=== PATIENT | male | born 1940 | race Caucasian/White ===

== ENCOUNTER 2018-06-29 14:27 | Inpatient (IN) ==
[2018-06-29] MEDS ORDERED: Pantoprazole Inj 40 MG Vial IV.PUSH ONE (15:07)
[2018-06-29] MEDS ORDERED: Sod Chloride 0.9% Inj 1,000 ML IV.CONT SCH (15:15)
--- NOTE | 2018-06-29 15:33 | ED ---
HPI General Chief Complaint: Recheck/Abnormal Lab/Rx Stated Complaint: [facility] Time Seen by Provider: 06/29/18 14:50 Source: patient Mode of arrival: ambulatory Limitations: no limitations History of Present Illness HPI narrative: The patient is a 77-year-old male who presents to the emergency department for abnormal lab results. The patient states he recently had blood work performed at the [place] [facility] which revealed a hemoglobin of 7.4. The patient was referred to the emergency department for further evaluation. The patient notes a 4-5 month history of intermittent black stools, last black stool was this morning. He also complains of mild fatigue, malaise, and shortness of breath with exertion. The patient denies any history of GI bleed and states his last colonoscopy was approximately 3-4 years ago at the [facility] , normal per his report. The patient does take Plavix and aspirin on a daily basis. Symptoms are moderate. He denies any epigastric abdominal pain, hematemesis, hematuria, or history of peptic ulcer disease. Symptoms are moderate. The patient denies any previous history of blood transfusion. Related Data Home Medications Medication Instructions Recorded Confirmed clopidogrel [Plavix] 75 mg PO DAILY 06/25/18 06/29/18 gabapentin 300 mg PO BID 06/25/18 06/29/18 prednisone 20 mg PO DAILY 06/25/18 06/29/18 aspirin [Aspir-81] 81 mg PO DAILY 06/29/18 06/29/18 Previous Rx's Medication Instructions Recorded methocarbamol [Robaxin] 500 mg PO Q6H #10 tab 06/25/18 Allergies Allergy/AdvReac Type Severity Reaction Status Date / Time [id number] Reductase AdvReac Intermediate [place] Verified 06/29/18 15:44 Inhibitor EXTREMITIES Review of Systems ROS: all other systems reviewed are negative [facility] Medical History Medical History Tibia fracture (Acute) TIA (transient ischemic attack) (Acute) 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) Surgical History Surgical History Hx of tonsillectomy (Acute) H/O left knee surgery (Acute) Family History Family History Father Family history of cancer Social History Social History Substance History: No History of Abuse Second Hand Smoke Exposure: No Smoking Status: Former smoker Tobacco Type: Cigarettes How Often Do You Have a Drink Containing Alcohol: Monthly or less Recent Travel in [facility] within the Last 8 Weeks: No Recent Out of Country Travel within the Last 8 Weeks: No Immunization History Tetanus Immunization Year if Known: 2018 Exam Narrative Exam Narrative: GENERAL: Awake, alert, pleasant 77-year-old male who appears his stated age and is in no acute respiratory distress. SKIN: Focused skin assessment warm/dry. HEAD: Atraumatic. Normocephalic. EYES: Pupils equal and round. No scleral icterus. No injection or drainage. Mild pallor noted. ENT: No nasal bleeding or discharge. Mucous membranes pink and moist. NECK: Trachea midline. No JVD. CARDIOVASCULAR: Regular rate and rhythm. No murmur appreciated. Heart rate in the 90s. RESPIRATORY: No accessory muscle use. Clear to auscultation. Breath sounds equal bilaterally. GASTROINTESTINAL: Abdomen soft, non-tender, nondistended. No rebound tenderness. No guarding rigidity. Rectal: No gross blood. Grossly guaiac positive with black stool. MUSCULOSKELETAL: No obvious deformities. No clubbing. No cyanosis. No edema. NEUROLOGICAL: Awake and alert. No obvious cranial nerve deficits. Motor grossly within normal limits. Normal speech. PSYCHIATRIC: Appropriate mood and affect; insight and judgment normal. Course Initial Documented Vital Signs Temperature 97.9 F 06/29/18 14:41 Pulse Rate 92 H 06/29/18 14:41 Respiratory Rate 16 06/29/18 14:41 Blood Pressure 172/72 H 06/29/18 14:41 Pulse Oximetry 98 06/29/18 14:41 Last Documented Vital Signs Temperature 97.9 F 06/29/18 14:41 Pulse Rate 92 H 06/29/18 14:41 Respiratory Rate 16 06/29/18 14:41 Blood Pressure 172/72 H 06/29/18 14:41 Pulse Oximetry 96 06/29/18 15:07 Medical Decision Making [facility] Narrative Medical decision making narrative: IV was established, labs are drawn and sent, and the patient was placed on cardiac telemetry monitoring and continuous pulse oximetry monitoring. EKG was ordered and interpreted. Orthostatic vital signs were obtained. The patient was placed on IV fluids. Type and screen was sent to lab. Rectal exam was performed, grossly guaiac positive with black stool, no gross blood. Hemoglobin was 7.6, BUN and creatinine are unremarkable. Patient does have symptomatic anemia with GI bleed, previous hemoglobin was normal. Therefore, the patient will be admitted to the hospital for serial CBC and GI evaluation. He may benefit from colonoscopy and/or blood transfusion. The patient is comfortable with this plan of care and disposition. Medical Screen Exam Complete: Yes Emergency Medical Condition: Yes Differential Diagnosis Differential Diagnosis: Differential diagnosis includes upper GI bleed, gastritis, peptic ulcer disease, AV malformation, angiodysplasia, colon cancer, diverticulosis, internal hemorrhoids, symptomatic anemia. Lab Data Result diagrams: 06/29/18 15:15 06/29/18 15:15 Lab Results 06/29/18 06/29/18 06/29/18 Range/Units 15:15 15:15 15:15 WBC 8.7 (4.0-11.0) th/mm3 RBC 3.35 L (4.50-5.90) mil/mm3 Hgb 7.6 L (13.0-17.0) gm/dL Hct 23.7 L (39.0-51.0) % MCV 70.8 L (80.0-100.0) fL MCH 22.8 L (27.0-34.0) pg MCHC 32.1 (32.0-36.0) % RDW 18.9 H (11.6-17.2) % Plt Count 349 (150-450) th/mm3 MPV 7.7 (7.0-11.0) fL Neut % (Auto) 75.0 H (16.0-70.0) % Lymph % (Auto) 11.2 (9.0-44.0) % [place] % (Auto) 11.2 H (0.0-8.0) % Eos % (Auto) 1.6 (0.0-4.0) % Baso % (Auto) 1.0 (0.0-2.0) % Neut # (Auto) 6.5 (1.8-7.7) th/mm3 Lymph # (Auto) 1.0 (1.0-4.8) th/mm3 [place] # (Auto) 1.0 H (0.0-0.9) th/mm3 Eos # (Auto) 0.1 (0.0-0.4) th/mm3 Baso # (Auto) 0.1 (0.0-0.2) th/mm3 WBC Differential . Differential Comment Auto diff final PT 10.7 (9.8-11.6) sec INR 1.1 Ratio APTT 24.5 (24.3-30.1) sec Sodium 140 (136-145) meq/L Potassium 3.6 (3.5-5.1) meq/L Chloride 105 (98-107) meq/L Carbon Dioxide 21.5 (21.0-32.0) meq/L Anion Gap 14 (5-15) meq/L BUN 9 (7-18) mg/dL Creatinine 0.74 (0.60-1.30) mg/dL Estimated GFR Greater than 89 (>89) mL/min Random Glucose 74 (74-106) mg/dL Calcium 8.3 L (8.5-10.1) mg/dL Total Bilirubin 0.4 (0.2-1.0) mg/dL AST 25 (15-37) U/L ALT 26 (12-78) U/L Alkaline Phosphatase 69 (45-117) U/L Total Protein 7.4 (6.4-8.2) g/dL Albumin 3.5 (3.4-5.0) g/dL Blood Type Blood Type Recheck Antibody Screen 06/29/18 Range/Units 15:15 WBC (4.0-11.0) th/mm3 RBC (4.50-5.90) mil/mm3 Hgb (13.0-17.0) gm/dL Hct (39.0-51.0) % MCV (80.0-100.0) fL MCH (27.0-34.0) pg MCHC (32.0-36.0) % RDW (11.6-17.2) % Plt Count (150-450) th/mm3 MPV (7.0-11.0) fL Neut % (Auto) (16.0-70.0) % Lymph % (Auto) (9.0-44.0) % [place] % (Auto) (0.0-8.0) % Eos % (Auto) (0.0-4.0) % Baso % (Auto) (0.0-2.0) % Neut # (Auto) (1.8-7.7) th/mm3 Lymph # (Auto) (1.0-4.8) th/mm3 [place] # (Auto) (0.0-0.9) th/mm3 Eos # (Auto) (0.0-0.4) th/mm3 Baso # (Auto) (0.0-0.2) th/mm3 WBC Differential Differential Comment PT (9.8-11.6) sec INR Ratio APTT (24.3-30.1) sec Sodium (136-145) meq/L Potassium (3.5-5.1) meq/L Chloride (98-107) meq/L Carbon Dioxide (21.0-32.0) meq/L Anion Gap (5-15) meq/L BUN (7-18) mg/dL Creatinine (0.60-1.30) mg/dL Estimated GFR (>89) mL/min Random Glucose (74-106) mg/dL Calcium (8.5-10.1) mg/dL Total Bilirubin (0.2-1.0) mg/dL AST (15-37) U/L ALT (12-78) U/L Alkaline Phosphatase (45-117) U/L Total Protein (6.4-8.2) g/dL Albumin (3.4-5.0) g/dL Blood Type O Negative Blood Type Recheck Required Antibody Screen Negative Discharge Plan Discharge Disposition Patient Disposition: 30 Still Patient Discharge Condition Condition: Stable Discharge Details Diagnosis: Symptomatic anemia, Gastrointestinal bleed Physicians Team ED Provider: Carlos Steven Primary Care Provider: [facility] Other Providers: Romeo Robertson Rxs /Orders / Referrals /Forms Prescriptions: No Action prednisone 20 mg Tablet 20 mg PO DAILY RF: 0 clopidogrel [Plavix] 75 mg Tablet 75 mg PO DAILY RF: 0 gabapentin 300 mg Capsule 300 mg PO BID RF: 0 methocarbamol [Robaxin] 500 mg tablet 500 mg PO Q6H Qty: 10 RF: 0 aspirin [Aspir-81] 81 mg Tablet,Delayed Release (Dr/Ec) 81 mg PO DAILY RF: 0 Status ED Status: Pending Admission
[2018-06-29 16:00] LABS: Baso # (Auto) 0.1 th/mm3 (0.0-0.2); Eos # (Auto) 0.1 th/mm3 (0.0-0.4); Eos % (Auto) 1.6 % (0.0-4.0); Hematocrit 23.7 % (39.0-51.0); Hemoglobin 7.6 gm/dL (13.0-17.0); Lymph % (Auto) 11.2 % (9.0-44.0); Mean Corpuscular HGB Conc 32.1 % (32.0-36.0); Mean Corpuscular Hemoglobin 22.8 pg (27.0-34.0); Mean Corpuscular Volume 70.8 fL (80.0-100.0); Mean Platelet Volume 7.7 fL (7.0-11.0); Mono % (Auto) 11.2 % (0.0-8.0); Neut # (Auto) 6.5 th/mm3 (1.8-7.7); Platelet Count 349 th/mm3 (150-450); Red Blood Count 3.35 mil/mm3 (4.50-5.90); Red Cell Distribution Width 18.9 % (11.6-17.2); White Blood Count 8.7 th/mm3 (4.0-11.0)
[2018-06-29 16:05] LABS: Activated Partial Thrombo Time 24.5 sec (24.3-30.1); INR 1.1 Ratio; Prothrombin Time 10.7 sec (9.8-11.6)
[2018-06-29 16:18] LABS: Alanine Aminotransferase 26 U/L (12-78); Albumin 3.5 g/dL (3.4-5.0); Anion Gap 14 meq/L (5-15); Aspartate Aminotransferase 25 U/L (15-37); Blood Urea Nitrogen 9 mg/dL (7-18); Calcium 8.3 mg/dL (8.5-10.1); Carbon Dioxide 21.5 meq/L (21.0-32.0); Chloride 105 meq/L (98-107); Glomerular Filtration Rate Greater Than 89 mL/min (>89); Glucose,Random 74 mg/dL (74-106); Potassium 3.6 meq/L (3.5-5.1); Sodium 140 meq/L (136-145)
[2018-06-29 16:20] LABS: Alkaline Phosphatase 69 U/L (45-117); Total Protein 7.4 g/dL (6.4-8.2)
[2018-06-29] MEDS ORDERED: Sodium Chlor 0.9% Inj 250 ML IV.SIG SCH ×3 (17:00→20:00)
--- NOTE | 2018-06-29 17:04 | P.HPIM ---
History of Present Illness Primary Care Physician: [facility] Chief Complaint: anemia History of Present Illness: patient is a 77 y/o male with history of CVA and osteoarthritis, who was advised by [place] [facility] to come to ER because of anemia. he says that he's had ' on and off black stools' over the past few months. he's having exertional dyspnea and fatigue recently. he says that he used to take one tablet of Motrin as a daily for many years but this was changed to tylenol two weeks ago.he denies any abdominal pain, nausea, vomiting or weight loss. he had a Hb of 7.4 at [place] for which he was sent to ER.he says that his last colonoscopy was few years ago and he was told that he had polyps. 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 - Surgical History Surgical History: Surgical History (Last Updated 06/29/18 @ 15:48 by Jun Stevenson) Hx of tonsillectomy (Acute) H/O left knee surgery (Acute) - Family History Family History: Family History (Last Updated 06/29/18 @ 17:01 by Isiah Lawler MD) Father Family history of cancer - Tobacco History Second Hand Smoke Exposure: No Smoking Status: Former smoker Tobacco Type: Cigarettes - Alcohol History How Often Do You Have a Drink Containing Alcohol: Monthly or less - Substance Use History Substance History: No History of Abuse - Travel History Recent Travel in the [place] Within the Last 8 Weeks: No Recent Travel Out of the Country Within the Last 8 Weeks: No - Immunization History Tetanus Immunization: Unsure Tetanus Immunization Year if Known: 2017 Hx Influenza Vaccine This Season: Yes Medications and Allergies Active Medications: Active Medications Gabapentin (Neurontin) 300 mg PO BID KHRIS Sodium Chloride (Ns Inj) 250 mls @ 15 mls/hr IV.SIG ONCE KHRIS Stop: 06/30/18 09:39 Sodium Chloride (Ns Inj) 1,000 mls @ 75 mls/hr IV.CONT .[id number] KHRIS Methocarbamol (Robaxin) 500 mg PO Q6H KHRIS Pantoprazole Sodium (Protonix Inj) 40 mg IV.PUSH Q24H KHRIS Sodium Chloride (Ns Flush) 2 ml IV.FLUSH PRN PRN PRN Reason: FLUSH AFTER USING IV ACCESS Allergies Allergy/AdvReac Type Severity Reaction Status Date / Time [id number]-Qfp-[id number] Reductase AdvReac Intermediate [place] Verified 06/29/18 15:44 Inhibitor EXTREMITIES Home Medications Medication Instructions Recorded Confirmed Type clopidogrel [Plavix] 75 mg PO DAILY 06/25/18 06/29/18 History gabapentin 300 mg PO BID 06/25/18 06/29/18 History prednisone 20 mg PO DAILY 06/25/18 06/29/18 History aspirin [Aspir-81] 81 mg PO DAILY 06/29/18 06/29/18 History Exam Vital signs: Vital Signs 06/29/18 14:41 06/29/18 15:07 Temperature 97.9 F Pulse Rate 92 H Respiratory Rate 16 Blood Pressure 172/72 H Pulse Oximetry 98 96 Intake & Output 06/28/18 06/29/18 06/29/18 18:59 06:59 18:59 Weight 77.111 kg - Constitutional no acute distress - Routine HEENT Exam Eye: Present: PERRL - Routine Neck Exam Present: full ROM - Routine Respiratory Exam Present: CTA bilaterally - Routine Cardiovascular Exam Present: RRR - Routine Abdominal Exam Present: soft - Routine Extremities Exam Comments: no pedal edema. - Routine Neurological Exam Present: alert, oriented X3 Results - Labs CBC & Chem 7: 06/29/18 15:15 06/29/18 15:15 Labs: Short CBC 06/29/18 Range/Units 15:15 WBC 8.7 (4.0-11.0) th/mm3 Hgb 7.6 L (13.0-17.0) gm/dL Hct 23.7 L (39.0-51.0) % Plt Count 349 (150-450) th/mm3 BMP 06/29/18 15:15 Sodium 140 Potassium 3.6 Chloride 105 Carbon Dioxide 21.5 BUN 9 Creatinine 0.74 Calcium 8.3 L Liver Function 06/29/18 Range/Units 15:15 Total Bilirubin 0.4 (0.2-1.0) mg/dL AST 25 (15-37) U/L ALT 26 (12-78) U/L Alkaline Phosphatase 69 (45-117) U/L Albumin 3.5 (3.4-5.0) g/dL Caprini VTE Risk Assessment Caprini VTE Risk Assessment: Moderate/High Risk (score >= 2) VTE Pharmacological Exception Reason: High risk for bleeding Caprini Risk Assessment Model: Point Value = 1 Point Value = 2 Point Value = 3 Point Value = 5 Age 41-60 Minor surgery BMI > 25 kg/m2 Swollen legs Varicose veins or History of unexplained or recurrent spontaneous Oral contraceptives or hormone replacement Sepsis (< 1 month) Serious lung disease, including pneumonia (< 1 month) Abnormal pulmonary function Acute myocardial infarction Congestive heart failure (< 1 month) History of inflammatory bowel disease Medical patient at bed rest Age 61-74 Arthroscopic surgery Major open surgery (> 45 min) Laparoscopic surgery (> 45 min) Malignancy Confined to bed (> 72 hours) Immobilizing plaster cast Central venous access Age >= 75 History of VTE Family history of VTE Factor V Leiden Prothrombin [id number] Lupus anticoagulant Anticardiolipin antibodies Elevated serum homocysteine Heparin-induced thrombocytopenia Other congenital or acquired thrombophilia Stroke (< 1 month) Elective arthroplasty Hip, pelvis, or leg fracture Acute spinal cord injury (< 1 month) Prophylaxis Regimen: Total Risk Factor Score Risk Level Prophylaxis Regimen 0-1 Low Early ambulation 2 Moderate Order ONE of the following: *Sequential Compression Device (SCD) *Heparin 5000 units SQ BID 3-4 Higher Order ONE of the following medications: *Heparin 5000 units SQ TID *Enoxaparin/Lovenox 40 mg SQ daily (WT < 150 kg, CrCl > 30 mL/min) *Enoxaparin/Lovenox 30 mg SQ daily (WT < 150 kg, CrCl > 10-29 mL/min) *Enoxaparin/Lovenox 30 mg SQ BID (WT < 150 kg, CrCl > 30 mL/min) AND/OR *Sequential Compression Device (SCD) 5 or more Highest Order ONE of the following medications: *Heparin 5000 units SQ TID (Preferred with Epidurals) *Enoxaparin/Lovenox 40 mg SQ daily (WT < 150 kg, CrCl > 30 mL/min) *Enoxaparin/Lovenox 30 mg SQ daily (WT < 150 kg, CrCl > 10-29 mL/min) *Enoxaparin/Lovenox 30 mg SQ BID (WT < 150 kg, CrCl > 30 mL/min) AND *Sequential Compression Device (SCD) Assessment and Plan - Plan A/P - Anemia- hypochromic microcytic- likely due to GI bleed liquid diet for now and NPO after midnight- will transfuse with PRBC and repeat H/H after the transfusion- will continue PPI, check iron panel and consult GI. -history of CVA; hold aspirin and Plavix- till GI evaluation. -history of hypertension; vasotec prn for now. -DVT prophylaxis with SCD's- no chemical prophylaxis due to anemia/ possible GI bleed. Discussed Condition With: ER physician and the patient.
[2018-06-29 18:37] LABS: % Iron Saturation 3.6 % (20-50)
[2018-06-29] MEDS: Methocarbamol 500 MG Tablet PO SCH ×2 (19:23→23:28)
[2018-06-29] MEDS: Gabapentin 300 MG Capsule PO SCH (23:29)
[2018-06-29] MEDS: Sod Chloride 0.9% Inj 1,000 ML IV.CONT SCH (23:32)
[2018-06-30 05:11] LABS: Hematocrit 29.7 % (39.0-51.0); Hemoglobin 9.3 gm/dL (13.0-17.0); Mean Corpuscular HGB Conc 31.5 % (32.0-36.0); Mean Corpuscular Hemoglobin 23.3 pg (27.0-34.0); Mean Corpuscular Volume 73.9 fL (80.0-100.0); Mean Platelet Volume 7.5 fL (7.0-11.0); Platelet Count 308 th/mm3 (150-450); Red Blood Count 4.01 mil/mm3 (4.50-5.90)
[2018-06-30] MEDS: Methocarbamol 500 MG Tablet PO SCH ×3 (06:39→17:53)
--- NOTE | 2018-06-30 08:32 | P.CONGI ---
History of Present Illness Consult date: 06/30/18 Consult reason: Anemia/GIB Chief complaint: Symtomatic Anemia, GI Bleed History of Present Illness: This is a 77 yo M with PMH significant for CVA, osteoarthritis, and PAD S/P right femoral artery stent who is on Plavix. Pt was sent by the [facility] yesterday for evaluation of anemia. Pt reports he was seen by the [facility] about a week ago for neck pain and fever, they referred him to the ER due to concern for meningitis, pt was seen in the ER and discharged home. [facility], they found him to be severely anemic and sent him to the hospital for admission for further work up. Pt denies any history of anemia, has never been on iron or b12 supplements, denies previous blood transfusion. Reports fatigue and dyspnea on exertion for the past month. Reports intermittent black stools for the past month, states has one black stool a day for 2-3 days and then resolution for about a week. Also complaining of heartburn, states was so bad at one point he was taking up to a pack of Rolaids a day. Denies nausea, vomiting, abdominal pain, diarrhea, unintentional weight loss. Has never had EGD. Last colonoscopy was 5 years ago, states normal exam but that on his first one there were polyps. States father had some type of GI cancer, thinks it was stomach cancer but is unsure. Drinks 2-3 beers a day. Quit smoking 7 years ago. Of note, was taking Ibuprofen daily until 2 weeks ago when his vascular surgeon took him off of this, now takes Tylenol for arthritis pain. <Diana Salazar - Last Filed: 06/30/18 08:16> Review of Systems Constitutional: Reports night sweats, Denies weight loss Cardiovascular: Denies chest pain Respiratory: Reports shortness of breath with activity Gastrointestinal: Reports black, tarry stools, Reports heartburn, Denies abdominal pain, Denies bright, red blood in stools, Denies coffee ground vomit, Denies nausea, Denies vomiting <Diana Salazar - Last Filed: 06/30/18 08:16> PMFSH - History History Provided By: Patient - Medical History Medical History: Medical History (Last Updated 06/29/18 @ 15:48 by Jun Stevenson) Tibia fracture (Acute) TIA (transient ischemic attack) (Acute) Arterial vascular disease (Acute) Stenosis of right femoral artery - Surgical History Surgical History: Surgical History (Last Updated 06/29/18 @ 15:48 by Jun Stevenson) Hx of tonsillectomy (Acute) H/O left knee surgery (Acute) - Family History Family History: Family History (Last Updated 06/29/18 @ 17:01 by Isiah Lawler MD) Father Family history of cancer - Tobacco History Second Hand Smoke Exposure: No Tobacco Use In Past 30 Days: No Smoking Status: Former smoker Tobacco Type: Cigarettes - Alcohol History How Often Do You Have a Drink Containing Alcohol: 4 or more times a week - Substance Use History Substance History: No History of Abuse - Travel History Recent Travel in the [place] Within the Last 8 Weeks: No Recent Travel Out of the Country Within the Last 8 Weeks: No - Immunization History Tetanus Immunization: Unsure Tetanus Immunization Year if Known: 2017 Hx Influenza Vaccine This Season: No <Diana Salazar - Last Filed: 06/30/18 08:16> - Medical History Medical History: Medical History (Last Updated 06/29/18 @ 15:48 by Jun Stevenson) Tibia fracture (Acute) TIA (transient ischemic attack) (Acute) Arterial vascular disease (Acute) Stenosis of right femoral artery - Surgical History Surgical History: Surgical History (Last Updated 06/29/18 @ 15:48 by Jun Stevenson) Hx of tonsillectomy (Acute) H/O left knee surgery (Acute) - Family History Family History: Family History (Last Updated 06/29/18 @ 17:01 by Isiah Lawler MD) Father Family history of cancer <Romeo Robertson - Last Filed: 06/30/18 16:50> Medications and Allergies Active Medications: Active Medications Enalaprilat (Vasotec Inj) 1.25 mg IV.PUSH Q8H PRN PRN Reason: SBP> 180 or DBP > 100 Gabapentin (Neurontin) 300 mg PO BID [facility] Last Admin: 06/29/18 23:29 Dose: Not Given Sodium Chloride (Ns Inj) 250 mls @ 15 mls/hr IV.SIG ONCE [facility] Stop: 06/30/18 09:39 Last Admin: 06/29/18 20:08 Dose: Not Given Sodium Chloride (Ns Inj) 1,000 mls @ 75 mls/hr IV.CONT .[id number] [facility] Last Admin: 06/29/18 23:32 Dose: 75 mls/hr Sodium Chloride (Ns Inj) 250 mls @ 15 mls/hr IV.SIG ONCE [facility] Stop: 06/30/18 11:39 Last Admin: 06/29/18 20:08 Dose: Not Given Sodium Chloride (Ns Inj) 250 mls @ 15 mls/hr IV.SIG ONCE [facility] Stop: 06/30/18 12:39 Last Admin: 06/29/18 23:29 Dose: 15 mls/hr Methocarbamol (Robaxin) 500 mg PO Q6H [facility] Last Admin: 06/30/18 06:39 Dose: 500 mg Pantoprazole Sodium (Protonix Inj) 40 mg IV.PUSH Q24H [facility] Sodium Chloride (Ns Flush) 2 ml IV.FLUSH PRN PRN PRN Reason: FLUSH AFTER USING IV ACCESS <Diana Salazar - Last Filed: 06/30/18 08:16> Active Medications: Active Medications Enalaprilat (Vasotec Inj) 1.25 mg IV.PUSH Q8H PRN PRN Reason: SBP> 180 or DBP > 100 Gabapentin (Neurontin) 300 mg PO BID [facility] Last Admin: 06/30/18 10:09 Dose: 300 mg Sodium Chloride (Ns Inj) 1,000 mls @ 75 mls/hr IV.CONT .[id number] [facility] Last Admin: 06/29/18 23:32 Dose: 75 mls/hr Methocarbamol (Robaxin) 500 mg PO Q6H [facility] Last Admin: 06/30/18 06:39 Dose: 500 mg Pantoprazole Sodium (Protonix Inj) 40 mg IV.PUSH Q24H [facility] Last Admin: 06/30/18 10:08 Dose: 40 mg Sodium Chloride (Ns Flush) 2 ml IV.FLUSH PRN PRN PRN Reason: FLUSH AFTER USING IV ACCESS <Romeo Robertson - Last Filed: 06/30/18 16:50> Allergies Allergy/AdvReac Type Severity Reaction Status Date / Time [id number]-[id number] Reductase AdvReac Intermediate [place] Verified 06/29/18 15:44 Inhibitor EXTREMITIES Home Medications Medication Instructions Recorded Confirmed Type clopidogrel [Plavix] 75 mg PO DAILY 06/25/18 06/29/18 History gabapentin 300 mg PO BID 06/25/18 06/29/18 History prednisone 20 mg PO DAILY 06/25/18 06/29/18 History aspirin [Aspir-81] 81 mg PO DAILY 06/29/18 06/29/18 History Exam Vital signs: Vital Signs 06/29/18 14:41 06/29/18 15:07 06/29/18 19:00 Temperature 97.9 F Pulse Rate 92 H Respiratory Rate 16 Blood Pressure 172/72 H Pulse Oximetry 98 96 98 06/29/18 19:14 06/29/18 20:36 06/29/18 23:33 Temperature 97.5 F L 98.6 F Pulse Rate 75 96 H 86 Respiratory Rate 16 18 18 Blood Pressure 172/84 H 188/79 H 146/63 H Pulse Oximetry 98 100 98 06/29/18 23:54 06/30/18 02:09 06/30/18 04:00 Temperature 98.1 F 98.1 F 98.3 F Pulse Rate 82 76 77 Respiratory Rate 18 18 17 Blood Pressure 131/63 143/65 H 124/66 Pulse Oximetry 97 96 Intake & Output 06/29/18 06/30/18 06/30/18 18:59 06:59 18:59 Intake Total 2280 / 2280 Balance 2280 / 2280 Weight 77.111 kg 80.1 kg Intake: IV 1000 / 1000 NS Inj 1,000 ML @ 125 mls/hr IV 1000 / 1000 .CONT .Q8H [facility] Rx#:[id number] Oral 480 / 480 Intake (Blood Product) Amt 800 / 800 Rbc As-3 Leukoreduced Unit 400 / 400 [id number] Rbc As-3 Leukoreduced Unit 400 / 400 [id number] Other: # Voids 2 Date of Last Bowel Movement 06/29/18 - Constitutional no acute distress - Routine HEENT Exam Head: Present: normocephalic, atraumatic - Routine Respiratory Exam Absent: accessory muscle use - Routine Cardiovascular Exam Present: RRR - Routine Abdominal Exam Present: soft, normoactive bowel sounds. Absent: tenderness, distended, rebound - Routine Skin Exam Present: dry, warm - Routine Neurological Exam Present: alert, oriented X3 <Diana Salazar - Last Filed: 06/30/18 08:16> Vital signs: Vital Signs 06/29/18 19:00 08/28/18 19:14 06/29/18 20:36 Temperature 97.5 F L Pulse Rate 75 96 H Respiratory Rate 16 18 Blood Pressure 172/84 H 188/79 H Pulse Oximetry 98 98 100 06/29/18 23:33 06/29/18 23:54 06/30/18 02:09 Temperature 98.6 F 98.1 F 98.1 F Pulse Rate 86 82 76 Respiratory Rate 18 18 18 Blood Pressure 146/63 H 131/63 143/65 H Pulse Oximetry 98 97 06/30/18 04:00 06/30/18 08:00 06/30/18 08:56 Temperature 98.3 F 97.4 F L Pulse Rate 77 80 Respiratory Rate 17 18 Blood Pressure 124/66 175/89 H Pulse Oximetry 96 97 96 06/30/18 12:00 06/30/18 16:00 Temperature 97.9 F 97.2 F L Pulse Rate 78 75 Respiratory Rate 17 17 Blood Pressure 156/68 H 150/70 H Pulse Oximetry 98 100 Intake & Output 06/29/18 06/30/18 06/30/18 18:59 06:59 18:59 Intake Total 2280 / 2280 Balance 2280 / 2280 Weight 77.111 kg 80.1 kg Intake: IV 1000 / 1000 NS Inj 1,000 ML @ 125 mls/hr IV 1000 / 1000 .CONT .Q8H [facility] Rx#:[id number] Oral 480 / 480 Intake (Blood Product) Amt 800 / 800 Rbc As-3 Leukoreduced Unit 400 / 400 [id number] Rbc As-3 Leukoreduced Unit 400 / 400 [id number] Other: # Voids 2 Date of Last Bowel Movement 06/29/18 <Romeo Robertson - Last Filed: 06/30/18 16:50> Results - Labs CBC & Chem 7: 06/30/18 04:45 06/29/18 15:15 Labs: Laboratory Results - last 24 hr 06/29/18 06/29/18 06/29/18 15:15 15:15 15:15 WBC 8.7 RBC 3.35 L Hgb 7.6 L Hct 23.7 L MCV 70.8 L MCH 22.8 L MCHC 32.1 RDW 18.9 H Plt Count 349 MPV 7.7 Neut % (Auto) 75.0 H Lymph % (Auto) 11.2 [place] % (Auto) 11.2 H Eos % (Auto) 1.6 Baso % (Auto) 1.0 Neut # (Auto) 6.5 Lymph # (Auto) 1.0 [place] # (Auto) 1.0 H Eos # (Auto) 0.1 Baso # (Auto) 0.1 WBC Differential . Differential Comment Auto diff final PT 10.7 INR 1.1 APTT 24.5 Sodium 140 Potassium 3.6 Chloride 105 Carbon Dioxide 21.5 Anion Gap 14 BUN 9 Creatinine 0.74 Estimated GFR Greater than 89 Random Glucose 74 Calcium 8.3 L Iron TIBC % Saturation Ferritin Total Bilirubin 0.4 AST 25 ALT 26 Alkaline Phosphatase 69 Total Protein 7.4 Albumin 3.5 Blood Type Blood Type Recheck Antibody Screen MTS Gel Crossmatch 06/29/18 06/29/18 06/29/18 15:15 15:15 21:51 WBC RBC Hgb Hct MCV MCH MCHC RDW Plt Count MPV Neut % (Auto) Lymph % (Auto) [place] % (Auto) Eos % (Auto) Baso % (Auto) Neut # (Auto) Lymph # (Auto) [place] # (Auto) Eos # (Auto) Baso # (Auto) WBC Differential Differential Comment PT INR APTT Sodium Potassium Chloride Carbon Dioxide Anion Gap BUN Creatinine Estimated GFR Random Glucose Calcium Iron 19 L TIBC 524 H % Saturation 3.6 L Ferritin 6 L Total Bilirubin AST ALT Alkaline Phosphatase Total Protein Albumin Blood Type O Negative Blood Type Recheck Required Antibody Screen Negative MTS Gel Crossmatch See Detail 06/30/18 04:45 WBC 8.0 RBC 4.01 L Hgb 9.3 L Hct 29.7 L MCV 73.9 L MCH 23.3 L MCHC 31.5 L RDW 21.0 H Plt Count 308 MPV 7.5 Neut % (Auto) Lymph % (Auto) [place] % (Auto) Eos % (Auto) Baso % (Auto) Neut # (Auto) Lymph # (Auto) [place] # (Auto) Eos # (Auto) Baso # (Auto) WBC Differential Differential Comment PT INR APTT Sodium Potassium Chloride Carbon Dioxide Anion Gap BUN Creatinine Estimated GFR Random Glucose Calcium Iron TIBC % Saturation Ferritin Total Bilirubin AST ALT Alkaline Phosphatase Total Protein Albumin Blood Type Blood Type Recheck Antibody Screen MTS Gel Crossmatch <Diana Salazar Last Filed: 06/30/18 08:16> - Labs CBC & Chem 7: 06/30/18 04:45 06/29/18 15:15 Labs: Laboratory Results - last 24 hr 06/29/18 06/29/18 06/30/18 15:15 21:51 04:45 WBC 8.0 RBC 4.01 L Hgb 9.3 L Hct 29.7 L MCV 73.9 L MCH 23.3 L MCHC 31.5 L RDW 21.0 H Plt Count 308 MPV 7.5 Iron 19 L TIBC 524 H % Saturation 3.6 L Ferritin 6 L MTS Gel Crossmatch See Detail <Romeo Robertson - Last Filed: 06/30/18 16:50> Assessment and Plan - Plan Assessment: - Anemia, microcytic, hypochromic with iron profile revealing iron deficiency- H/H on arrival 7.6/23.7 S/P 2 U PRBCs Pt on Plavix for Femoral artery stent. Pt denies history of anemia, previous blood transfusion. Does not take iron or B12 supplements. Complaining of fatigue and dyspnea on exertion for the past month. Complaining of black stools, intermittent for the past month. Denies nausea, vomiting, abdominal pain, diarrhea, unintentional weight loss. Has never had EGD. Last colonoscopy 5 years ago, states normal exam, history of colon polyps. Family history significant for father with some type of GI cancer, thinks stomach but he is unsure. Of note, was taking Ibuprofen daily until two weeks ago when his vascular surgeon told him to discontinue this. Drinks 2-3 beers a day. Quit smoking 7 years ago. Plan: EGD and colonoscopy tomorrow (indication: MARIBELL w/ family history of ? GI cancer ( unsure if colon), black stools, Ibuprofen use) Obtain consent Clear liquids today Golytely prep NPO after MN Monitor H/H Protonix Further recommendations to follow Pt has been seen and examined by myself and Dr. Robertson and this note is written on his behalf <Diana Salazar - Last Filed: 06/30/18 08:16> - Plan Seen and examined with Arno, no active bleeding. EGD/Colonoscopy planned for tomorrow. Thank you The exam, history, and the medical decision-making described in the above note were completed with the assistance of the mid-level provider. I reviewed and agree with the findings presented. I attest that I had a [id number] encounter with the patient on the same day, and personally performed and documented my assessment and findings in the medical record. <Romoe Robertson - Last Filed: 06/30/18 16:50>
[2018-06-30] MEDS: Pantoprazole Inj 40 MG Vial IV.PUSH SCH (10:08)
[2018-06-30] MEDS: Gabapentin 300 MG Capsule PO SCH ×2 (10:09→21:48)
--- NOTE | 2018-06-30 10:13 | P.PN ---
Subjective Interval history: F/up GIB patient still with black colored stool. ( x2 today) No cp, sob, palpitation Feels tired/ fatigued. No fever or chills No n/v. No diarrhea. Physical Exam Vital signs: Vital Signs 06/29/18 14:41 06/29/18 15:07 06/29/18 19:00 Temperature 97.9 F Pulse Rate 92 H Respiratory Rate 16 Blood Pressure 172/72 H Pulse Oximetry 98 96 98 06/29/18 19:14 06/29/18 20:36 06/29/18 23:33 Temperature 97.5 F L 98.6 F Pulse Rate 75 96 H 86 Respiratory Rate 16 18 18 Blood Pressure 172/84 H 188/79 H 146/63 H Pulse Oximetry 98 100 98 06/29/18 23:54 06/30/18 02:09 06/30/18 04:00 Temperature 98.1 F 98.1 F 98.3 F Pulse Rate 82 76 77 Respiratory Rate 18 18 17 Blood Pressure 131/63 143/65 H 124/66 Pulse Oximetry 97 96 06/30/18 08:00 06/30/18 08:56 Temperature 97.4 F L Pulse Rate 80 Respiratory Rate 18 Blood Pressure 175/89 H Pulse Oximetry 97 96 Intake & Output 06/29/18 06/30/18 06/30/18 18:59 06:59 18:59 Intake Total 2280 / 2280 Balance 2280 / 2280 Weight 77.111 kg 80.1 kg Intake: IV 1000 / 1000 NS Inj 1,000 ML @ 125 mls/hr IV 1000 / 1000 .CONT .Q8H [facility] Rx#:[id number] Oral 480 / 480 Intake (Blood Product) Amt 800 / 800 Rbc As-3 Leukoreduced Unit 400 / 400 [id number] Rbc As-3 Leukoreduced Unit 400 / 400 [id number] Other: # Voids 2 Date of Last Bowel Movement 06/29/18 Narrative: GENERAL: Pleasant 77 yo male, in bed appears in nad. SKIN: Pale. NECK: Supple, trachea midline. No JVD or lymphadenopathy. CARDIOVASCULAR: Regular rate and rhythm without murmurs, gallops, or rubs. RESPIRATORY: Breath sounds equal bilaterally. No accessory muscle use. GASTROINTESTINAL: Abdomen soft, non-tender, nondistended. MUSCULOSKELETAL: No cyanosis, or edema. BACK: Nontender without obvious deformity. No CVA tenderness. Results - Labs CBC & Chem 7: 06/30/18 04:45 06/29/18 15:15 Laboratory Results - last 24 hr 06/29/18 06/29/18 06/29/18 15:15 15:15 15:15 WBC 8.7 RBC 3.35 L Hgb 7.6 L Hct 23.7 L MCV 70.8 L MCH 22.8 L MCHC 32.1 RDW 18.9 H Plt Count 349 MPV 7.7 Neut % (Auto) 75.0 H Lymph % (Auto) 11.2 [place] % (Auto) 11.2 H Eos % (Auto) 1.6 Baso % (Auto) 1.0 Neut # (Auto) 6.5 Lymph # (Auto) 1.0 [place] # (Auto) 1.0 H Eos # (Auto) 0.1 Baso # (Auto) 0.1 WBC Differential . Differential Comment Auto diff final PT 10.7 INR 1.1 APTT 24.5 Sodium 140 Potassium 3.6 Chloride 105 Carbon Dioxide 21.5 Anion Gap 14 BUN 9 Creatinine 0.74 Estimated GFR Greater than 89 Random Glucose 74 Calcium 8.3 L Iron TIBC % Saturation Ferritin Total Bilirubin 0.4 AST 25 ALT 26 Alkaline Phosphatase 69 Total Protein 7.4 Albumin 3.5 Blood Type Blood Type Recheck Antibody Screen MTS Gel Crossmatch 06/29/18 06/29/18 06/29/18 15:15 15:15 21:51 WBC RBC Hgb Hct MCV MCH MCHC RDW Plt Count MPV Neut % (Auto) Lymph % (Auto) [place] % (Auto) Eos % (Auto) Baso % (Auto) Neut # (Auto) Lymph # (Auto) [place] # (Auto) Eos # (Auto) Baso # (Auto) WBC Differential Differential Comment PT INR APTT Sodium Potassium Chloride Carbon Dioxide Anion Gap BUN Creatinine Estimated GFR Random Glucose Calcium Iron 19 L TIBC 524 H % Saturation 3.6 L Ferritin 6 L Total Bilirubin AST ALT Alkaline Phosphatase Total Protein Albumin Blood Type O Negative Blood Type Recheck Required Antibody Screen Negative MTS Gel Crossmatch See Detail 06/30/18 04:45 WBC 8.0 RBC 4.01 L Hgb 9.3 L Hct 29.7 L MCV 73.9 L MCH 23.3 L MCHC 31.5 L RDW 21.0 H Plt Count 308 MPV 7.5 Neut % (Auto) Lymph % (Auto) [place] % (Auto) Eos % (Auto) Baso % (Auto) Neut # (Auto) Lymph # (Auto) [place] # (Auto) Eos # (Auto) Baso # (Auto) WBC Differential Differential Comment PT INR APTT Sodium Potassium Chloride Carbon Dioxide Anion Gap BUN Creatinine Estimated GFR Random Glucose Calcium Iron TIBC % Saturation Ferritin Total Bilirubin AST ALT Alkaline Phosphatase Total Protein Albumin Blood Type Blood Type Recheck Antibody Screen MTS Gel Crossmatch Assessment and Plan - Plan - Anemia, microcytic, hypochromic with iron profile revealing iron deficiency - Melena. Anemia likely acute secondary to acute GIB. H/H on arrival 7.6/23.7 S/P 2 U PRBCs. HGB stable after transfusion. Pt on Plavix for Femoral artery stent. Pt denies history of anemia, previous blood transfusion. Does not take iron or B12 supplements. Has never had EGD. Last colonoscopy 5 years ago, states normal exam, history of colon polyps. Family history significant for father with some type of GI cancer, thinks stomach but he is unsure. Patient reports taking Ibuprofen daily until two weeks ago when his vascular surgeon told him to discontinue this. Drinks 2-3 beers a day. Quit smoking 7 years ago. Continue PPI GI consulted appreciate recommendations. EGD and colonoscopy 07/01 (indication: MARIBELL w/ family history of ? family h/o GI cancer (unsure if colon), black stools , Ibuprofen use) Clear liquids today Golytely prep and NPO after MN Monitor H/H and transfuse if need History of CVA; hold aspirin and Plavix- till GI evaluation. History of hypertension; vasotec prn for now. Monitor BP as patient with GIB and BP might drop. DVT prophylaxis with SCD's- no chemical prophylaxis due to anemia/ GI bleed.
[2018-06-30] MEDS ORDERED: PEG 3350/E-Lyte Soln 4000 ML Bottle PO ONE (16:00)
[2018-06-30] MEDS: Sod Chloride 0.9% Inj 1,000 ML IV.CONT SCH (17:10)
[2018-07-01] MEDS ORDERED: Chlorhexidine Gluconate 2% 1 Pack (2 Cloths) TOPICAL SCH (03:45)
[2018-07-01 04:27] LABS: Baso # (Auto) 0.1 th/mm3 (0.0-0.2); Baso % (Auto) 1.1 % (0.0-2.0); Eos # (Auto) 0.4 th/mm3 (0.0-0.4); Eos % (Auto) 4.4 % (0.0-4.0); Hematocrit 29.4 % (39.0-51.0); Hemoglobin 9.4 gm/dL (13.0-17.0); Lymph # (Auto) 1.1 th/mm3 (1.0-4.8); Lymph % (Auto) 11.9 % (9.0-44.0); Mean Corpuscular HGB Conc 31.9 % (32.0-36.0); Mean Corpuscular Hemoglobin 23.3 pg (27.0-34.0); Mean Corpuscular Volume 73.1 fL (80.0-100.0); Mean Platelet Volume 7.4 fL (7.0-11.0); Mono % (Auto) 11.4 % (0.0-8.0); Neut # (Auto) 6.4 th/mm3 (1.8-7.7); Neut % (Auto) 71.2 % (16.0-70.0); Platelet Count 305 th/mm3 (150-450); Red Blood Count 4.03 mil/mm3 (4.50-5.90); Red Cell Distribution Width 21.1 % (11.6-17.2)
[2018-07-01 04:54] LABS: Anion Gap 9 meq/L (5-15); Blood Urea Nitrogen 7 mg/dL (7-18); Calcium 7.9 mg/dL (8.5-10.1); Carbon Dioxide 24.8 meq/L (21.0-32.0); Chloride 108 meq/L (98-107); Glomerular Filtration Rate Greater Than 89 mL/min (>89); Glucose,Random 104 mg/dL (74-106); Potassium 3.8 meq/L (3.5-5.1); Sodium 142 meq/L (136-145)
[2018-07-01] MEDS: Sod Chloride 0.9% Inj 1,000 ML IV.CONT SCH ×3 (06:33→11:21)
--- NOTE | 2018-07-01 10:16 | GIPROC ---
[facility] [address] [facility]. [facility], [address] EGD PROCEDURE REPORT EXAM DATE: 07/01/2018 PATIENT NAME: Cedric Aiken MR #: [id number] BIRTHDATE: 1940 ATTENDING: Romeo Robertson MD ORDER #: [id number] [employer] ADMINISTRATIVE ASSISTANT: Lauren Starr and Madelyn Dalal STATUS: inpatient INDICATIONS: The patient is a 77 yr old male here for an EGD due to iron deficiency anemia PROCEDURE PERFORMED: EGD w/ biopsy MEDICATIONS: Per Anesthesia and None. TOPICAL ANESTHETIC: CONSENT: The patient understands the risks and benefits of the procedure and understands that these risks include, but are not limited to: sedation, allergic reaction, infection, perforation and/or bleeding. Alternative means of evaluation and treatment include, among others: physical exam, x-rays, and/or surgical intervention. The patient elects to proceed with this endoscopic procedure. medical equipment was checked for proper function. Hand hygiene and appropriate measures for infection prevention was taken. After the risks, benefits and alternatives of the procedure were thoroughly explained, Informed consent was verified, confirmed and timeout was successfully executed by the treatment team. The patient was anesthetized with topical anesthesia and the [id number] (Pedi C) endoscope was introduced through the mouth and advanced to the second portion of the duodenum. Retroflexed views revealed no abnormalities The gastroscope was then slowly withdrawn and removed. 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 The length of circumferential Roberts's was 2cm (Pitcher C2) and the length of Maximal extent of Roberts's was 2cm (Pitcher M2). There was no nodular mucosa noted in the Roberts's segment. A biopsy was performed using cold forceps. Sample sent for histology. STOMACH: There was erythematous moderate gastritis in the gastric antrum. A biopsy was performed using cold forceps. Sample sent for histology. DUODENUM: The duodenal mucosa appeared normal in the bulb and second portion of the duodenum. ADVERSE EVENTS: There were no complications. IMPRESSIONS: 1. 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 There was erythematous gastritis in the gastric antrum; biopsy was performed 3. Normal duodenal mucosa in the bulb and second portion of the duodenum 4. Retroflexed views revealed no abnormalities RECOMMENDATIONS: 1. Await biopsy results. Biopsy results will not be ready for 7-10 days. If you don't hear from us in two weeks, call our office for biopsy results. 2. Anti-reflux regimen 3. Continue PPI PATIENT CONDITION: stable DISPOSITION: Inpatient REPEAT EXAM: Return 1 year EGD pending biopsy results Romeo Robertson MD eSigned: Romeo Robertson MD 07/01/2018 10:15 AM cc: PATIENT NAME: Cedric Aiken MR#: [id number]
--- NOTE | 2018-07-01 10:27 | GIPROC ---
[facility] [address] [facility] [place]. [facility] [place], [address] COLONOSCOPY PROCEDURE REPORT EXAM DATE: 07/01/2018 PATIENT NAME: Cedric Aiken MR #: [id number] BIRTHDATE: 1940 ENDOSCOPIST: Romeo Robertson MD ORDER #: [id number] LIVE TRUCK TECHNICIAN: Lauren Starr and Madelyn Dalal STATUS: inpatient INDICATIONS: The patient is a 77 yr old male here for a colonoscopy due to abdominal pain and iron deficiency anemia PROCEDURE PERFORMED: Colonoscopy with biopsy MEDICATIONS: Per Anesthesia and None. PREP QUALITY: The Madison Bowel Prep Score was Right colon 2, Mid colon 3, and Left colon 3. Total = 8. PREP TYPE:GoLytely ESTIMATED BLOOD LOSS: None CONSENT: The patient understands the risks and benefits of the procedure and understands that these risks include, but are not limited to: sedation, allergic reaction, infection, perforation and/or bleeding. Alternative means of evaluation and treatment include, among others: physical exam, x-rays, and/or surgical intervention. The patient elects to proceed with this endoscopic procedure. medical equipment was checked for proper function. Hand hygiene and appropriate measures for infection prevention was taken. After the risks, benefits and alternatives of the procedure were thoroughly explained, Informed consent was verified, confirmed and timeout was successfully executed by the treatment team. A digital exam revealed external hemorrhoids The Pentax EC-[id number] endoscope was introduced through the anus and advanced to the cecum, which was identified by both the appendix and ileocecal valve. The instrument was then slowly withdrawn as the colon was fully examined. COLON FINDINGS: Moderate diverticulosis was noted in the sigmoid colon. No bleeding was noted from the diverticulosis. A circumferential patch of abnormal mucosa was found throughout the entire examined colon. Melanosis. A biopsy was performed using cold forceps. Retroflexed views revealed internal hemorrhoids and Retroflexed views revealed medium internal hemorrhoids The scope was then completely withdrawn from the patient and the procedure terminated. PROCEDURE WITHDRAWAL TIME:8minutes ADVERSE EVENTS: There were no complications. IMPRESSIONS: 1. Moderate diverticulosis was noted in the sigmoid colon 2. Circumferential abnormal mucosa was found throughout the entire examined colon; biopsy was performed using cold forceps 3. Retroflexed views revealed internal hemorrhoids 4. Retroflexed views revealed medium internal hemorrhoids 5. Revealed external hemorrhoids RECOMMENDATIONS: 1. Await biopsy results. Biopsy results will not be ready for 7-10 days. If you don't hear from us in two weeks, call our office for results. 2. Benefiber 2 tsp daily 3. Continue surveillance 4. Yearly hemoccult 5. High fiber diet 6. No seeds, nuts and popcorn in diet RECALL: Return 5 years Colonoscopy, pending biopsy results Romeo Robertson MD eSigned: Romeo Robertson MD 07/01/2018 10:26 AM cc: PATIENT NAME: Cedric Aiken MR#: [id number]
--- NOTE | 2018-07-01 10:58 | ECG ---
Date Performed: 07/01/2018 Time Performed: 04:26:40 PTAGE: 77 years EKG: Sinus rhythm Normal ECG Since the PREVIOUS TRACING , no significant change noted PREVIOUS TRACING DOCTOR: Benny Grimes Interpretating Date/Time 07/01/2018 10:57:04
[2018-07-01] MEDS: Gabapentin 300 MG Capsule PO SCH (11:20)
[2018-07-01] MEDS: Pantoprazole Inj 40 MG Vial IV.PUSH SCH (11:21)
[2018-07-01] MEDS ORDERED: Lidocaine PF 1% Inj 5 ML Syringe INFILTRATN ONE (12:00)
[2018-07-01 14:00] VITALS: BP 155/70; PULSE 77; RESP 18; TEMP 97.2; O2SAT 98
--- NOTE | 2018-07-01 15:00 | P.DS ---
Date of admission: 06/29/18 17:08 Primary care physician: [facility] Brief History from admission: patient is a 77 y/o male with history of CVA and osteoarthritis, who was advised by [facility] to come to ER because of anemia. he says that he's had ' on and off black stools' over the past few months. he's having exertional dyspnea and fatigue recently. he says that he used to take one tablet of Motrin as a daily for many years but this was changed to tylenol two weeks ago.he denies any abdominal pain, nausea, vomiting or weight loss. he had a Hb of 7.4 at [facility] for which he was sent to ER.he says that his last colonoscopy was few years ago and he was told that he had polyps. DS: Summary Hospital Course: Mr. Aiken is a 77 year old male. He was admitted due to GI Bleed. EGD and Colonoscopy showed no evidence of bleed, but gastritis was present and may be related to the primary etiology. He is on aspirin and Plavix at baseline. Femoral stent is present. No evidence of active bleed today. Hgb is improving through time. Medically stable and clear for discharge to home today. Plavix resumed due to risk with stent. Aspirin resumption to be deferred for after one week bleed free. - Time Spent with Patient Total time spent providing and/or coordinating discharge services: Less than 30 minutes - Quality: VTE Deep Vein Thrombosis/Pulmonary Embolism Present on Admission: No Exam Vital signs: Vital Signs 06/30/18 16:00 06/30/18 20:00 07/01/18 00:00 Temperature 97.2 F L 97.6 F 98.0 F Pulse Rate 75 81 74 Respiratory Rate 17 18 17 Blood Pressure 150/70 H 165/74 H 156/66 H Pulse Oximetry 100 98 96 07/01/18 04:00 07/01/18 06:14 07/01/18 10:35 Temperature 97.8 F 98.6 F Pulse Rate 84 79 64 Respiratory Rate 18 Blood Pressure 127/60 104/51 L Pulse Oximetry 94 L 94 L 07/01/18 10:49 07/01/18 12:00 Temperature 98.6 F 97.2 F L Pulse Rate 65 77 Respiratory Rate 16 18 Blood Pressure 127/58 L 155/70 H Pulse Oximetry 94 L 98 Intake & Output 06/30/18 07/01/18 07/01/18 18:59 06:59 18:59 Intake Total 1480 / 1480 1000 / 1000 1000 / 1000 Balance 1480 / 1480 1000 / 1000 1000 / 1000 Weight 79.9 kg Intake: IV 1000 / 1000 1000 / 1000 1000 / 1000 NS Inj 1,000 ML @ 75 mls/hr IV. 1000 / 1000 1000 / 1000 1000 / 1000 CONT .[id number] KHRIS Rx#:[id number] NS Inj 250 ML @ 15 mls/hr IV. 0 / 0 SIG ONCE KHRIS Rx#:[id number] Oral 480 / 480 Other: # Voids 6 4 Date of Last Bowel Movement 06/30/18 06/30/18 07/01/18 # Bowel Movements 8 1 Results Procedures completed during hospitalization: EGD Colonoscopy Labs on day of discharge: Labs from last 24 hours 07/01/18 07/01/18 04:14 04:14 WBC 9.0 RBC 4.03 L Hgb 9.4 L Hct 29.4 L MCV 73.1 L MCH 23.3 L MCHC 31.9 L RDW 21.1 H Plt Count 305 MPV 7.4 Neut % (Auto) 71.2 H Lymph % (Auto) 11.9 Moore % (Auto) 11.4 H Eos % (Auto) 4.4 H Baso % (Auto) 1.1 Neut # (Auto) 6.4 Lymph # (Auto) 1.1 Moore # (Auto) 1.0 H Eos # (Auto) 0.4 Baso # (Auto) 0.1 WBC Differential . Differential Comment Auto diff final Sodium 142 Potassium 3.8 Chloride 108 H Carbon Dioxide 24.8 Anion Gap 9 BUN 7 Creatinine 0.61 Estimated GFR Greater than 89 Random Glucose 104 Calcium 7.9 L Discharge Plan - Discharge Disposition Patient Disposition: 01 Discharge Home - Discharge Condition Condition: Stable - Discharge Order Discharge Orders: Discharge Order (Routine); Ordered 07/01/18 Ordered By: Davide Burgos - Discharge Details Anticipated Discharge Date: 07/01/18 Discharge Comment: Resume Aspirin at about one week after discharge, if not further evidence of bleeding occurs. - Physicians Team Primary Care Provider: [facility] Attending Provider: Davide Burgos Other Providers: Romeo Robertson MD
== END 2018-07-01 16:05 | disposition home or self-care (01) ==
LOC: NEPE 14:27 → NEDA 17:08 → N07 20:08
PROVIDERS: ADMIT Hospitalist; ATTEND Hospitalist
PROC: PANENDO (2018-07-01 09:47)
PROC: COLONOS (2018-07-01 09:47)